=== PATIENT | male | born 1985 | race Two or more races ===

== ENCOUNTER 2020-02-23 17:51 | Inpatient (IN) | payer MEDICAID, OTHER ==
[~2020-02-23] VITALS: Ht 175.3 cm; Wt 84.3 kg
[2020-02-23] MEDS ORDERED: SODIUM CHLORIDE 0.9% 1,000 ML IVB ONE (18:17)
[2020-02-23] MEDS ORDERED: LORazepam 2MG/ML-1ML VIAL IV ONE (18:30)
[2020-02-23] MEDS ORDERED: MIDAZOLAM HCL 1MG/1ML-2 ML VIAL IV ONE (19:15)
[2020-02-23 19:32] LABS: Urine Bacteria NONE SEEN /hpf (None Seen); Urine Blood Negative /uL (Negative); Urine Hyaline Cast MANY /lpf (0 - 2); Urine Mucus FEW (None Seen); Urine Specific Gravity 1.027 (1.001-1.035); Urine Sperm PRESENT /hpf (None Seen); Urine WBC 5 /hpf (0 - 3)
[2020-02-23 19:33] LABS: Basophils # (auto) 0 10 ^3/uL (0-0.2); Basophils % (auto) 0.1 % (0.0-2.0); Eosinophils # (auto) 0 10 ^3/uL (0-0.8); Lymphocytes # (auto) 1.5 10 ^3/uL (0.4-5.4); Monocytes # (auto) 1.6 10 ^3/uL (0-1.3); Neutrophils # (auto) 16.2 10 ^3/uL (1.6-8.6); White Blood Cell 19.3 10^3/uL (4.4-10.8)
[2020-02-23 19:35] LABS: Hematocrit 52.2 % (41.0-53.0); Hemoglobin 17.6 g/dL (13.5-17.5); Lymphocytes % (auto) 7.7 % (10.0-50.0); Mean Corpuscular Hemoglobin 31.7 pg (28.0-32.0); Mean Corpuscular Hgb Conc. 33.8 g/dL (32.0-36.0); Mean Corpuscular Volume 93.8 fL (80.0-100.0); Monocytes % (auto) 8.4 % (0.0-12.0); Neutrophils % (auto) 83.8 % (37.0-80.0); Nucleated Red Blood Cells % 0.7 %; Platelet Count (auto) 197 10^3/uL (140-450); Red Blood Cells 5.56 10^6/uL (4.5-5.90); Red Cell Distribution Width 12.6 % (11.8-14.3)
[2020-02-23 19:45] LABS: Albumin 4.7 g/dL (3.4-5.0); Potassium 4.8 mmol/L (3.5-5.1)
[2020-02-23 19:47] LABS: Alcohol, Urine < 3.0 mg/dL (0-10); Amphetamine Screen, Urine POSITIVE (NEGATIVE); Barbiturate Scree,Urine NEGATIVE (NEGATIVE); Benzodiazephine Screen, Urine POSITIVE (NEGATIVE); Cannabinoid Screen, Urine POSITIVE (NEGATIVE); Cocaine Screen, Urine NEGATIVE (NEGATIVE); Phencyclidine Screen, Urine NEGATIVE (NEGATIVE)
[2020-02-23 19:49] LABS: BUN/Creatinine Ratio 12.4; Bilirubin, Total 1.8 mg/dL (0.2-1.0); Salicylate < 1.7 mg/dL (2.8-20.0); Total Protein 9.5 g/dL (6.4-8.2)
[2020-02-23 19:52] LABS: Lactic Acid w/Reflex 3.6 mmol/L (0.4-2.0)
[2020-02-23 19:55] LABS: Opiate Scree,Urine NEGATIVE (NEGATIVE)
[2020-02-23 20:05] LABS: Acetaminophen < 2.0 ug/mL (10-30)
[2020-02-23] MEDS ORDERED: TEMAZEPAM 15 MG CAP PO PRN (21:00)
[2020-02-23] MEDS ORDERED: ONDANSETRON HCL 4 MG/2 ML VIAL IV PRN (21:00)
[2020-02-23] MEDS ORDERED: cefTRIAXone 1GM/50ML D5W 50 ML IV ONE (21:00)
[2020-02-23] MEDS ORDERED: SODIUM CHLORIDE 0.9% 1,000 ML IV SCH (21:00)
[2020-02-23] MEDS ORDERED: SODIUM CHLORIDE 0.9% 1,000 ML IV ONE ×2 (21:00→21:15)
[2020-02-23] MEDS ORDERED: NITROGLYCERIN 0.4 MG SL TAB SL PRN (21:30)
[2020-02-23] MEDS ORDERED: MORPHINE SULF INJ 2 MG/ML SYRINGE 1ML IV PRN (21:30)
[2020-02-23] MEDS ORDERED: FAMOTIDINE 20 MG TAB PO SCH (22:00)
[2020-02-23] MEDS ORDERED: SODIUM BICARBONATE 8.4 % INJ 50ML VIAL IV ONE (23:00)
[2020-02-23] MEDS ORDERED: SODIUM CHLORIDE 0.9% 500 ML IV ONE (23:00)
[2020-02-23] MEDS ORDERED: SODIUM BICARBONATE 8.4% INJ 50ML SYRINGE ONE (23:12)
[2020-02-23] MEDS: SODIUM BICARBONATE 50ML VIAL 50 ML in SOD CHL 0.45% 1,000 ML IV SCH (23:28)
[2020-02-24] MEDS ORDERED: SODIUM CHLORIDE 0.9% 500 ML IV ONE (05:00)
[2020-02-24 06:00] LABS: Basophils # (auto) 0 10 ^3/uL (0-0.2); Basophils % (auto) 0.2 % (0.0-2.0); Eosinophils # (auto) 0 10 ^3/uL (0-0.8); Eosinophils % (auto) 0.1 % (0.0-7.0); Hematocrit 38.5 % (41.0-53.0); Hemoglobin 13.3 g/dL (13.5-17.5); Lymphocytes # (auto) 2.3 10 ^3/uL (0.4-5.4); Lymphocytes % (auto) 16.5 % (10.0-50.0); Mean Corpuscular Hemoglobin 32.3 pg (28.0-32.0); Mean Corpuscular Hgb Conc. 34.6 g/dL (32.0-36.0); Mean Corpuscular Volume 93.2 fL (80.0-100.0); Monocytes # (auto) 1.9 10 ^3/uL (0-1.3); Monocytes % (auto) 13.6 % (0.0-12.0); Neutrophils # (auto) 9.8 10 ^3/uL (1.6-8.6); Neutrophils % (auto) 69.6 % (37.0-80.0); Platelet Count (auto) 138 10^3/uL (140-450); Red Blood Cells 4.13 10^6/uL (4.5-5.90); Red Cell Distribution Width 12.8 % (11.8-14.3); White Blood Cell 14.1 10^3/uL (4.4-10.8)
[2020-02-24 06:43] LABS: BUN/Creatinine Ratio 27.6; Bilirubin, Total 0.9 mg/dL (0.2-1.0); Calcium 7.7 mg/dL (8.5-10.1); Potassium 4.4 mmol/L (3.5-5.1); Total Protein 6.3 g/dL (6.4-8.2)
[2020-02-24] MEDS: SODIUM BICARBONATE 50ML VIAL 50 ML in SOD CHL 0.45% 1,000 ML IV SCH ×2 (09:07→15:48)
[2020-02-24] MEDS ORDERED: chlordiazePOXIDE HCL 25 MG CAP PO PRN (11:45)
[2020-02-24] MEDS ORDERED: PANTOPRAZOLE 40 MG/10 ML VIAL INJ IV ONE (11:45)
[2020-02-24] MEDS: FOLIC ACID 1 MG, MULTIPLE VITAMIN 10 ML, MAGNESIUM SULF SDV 50% 8 MEQ, THIAMINE INJ 100... INJ SCH ×5 (13:27)
--- NOTE | 2020-02-24 15:20 | NUR ---
Telemetry admit from ER [facility] admitted to Telemetry unit after SBAR received. Patient oriented to ev MADDEN RN, unit, room, bed, and unit policies regarding patient care and visiting hours. Patient now on continuous telemetry monitoring, tele box #4 and telemetry reading on arrival to unit is Sinus rhythm 92bpm with PVC. Patient on room air, weighed by bedscale and encouraged to call if they need something. All questions and concerns addressed, patient verbalized understanding.
[2020-02-24 16:01] VITALS: BP 143/92
[2020-02-24 17:00] VITALS: BP 143/92
--- NOTE | 2020-02-24 17:44 | NUR ---
IV removal right FA IV noted to be leaving. IV DC'd with clean sterile technique, catheter fully intact. Pressure dressing applied to site. Patient tolerated well.
--- NOTE | 2020-02-24 17:45 | NUR ---
IV insertion IV access obtained, via clean sterile technique by inserting 22 gauge catheter at RIGHT HAND after 1 attempt. IV secured properly. No trauma to site. Patient tolerated well.
[2020-02-24] MEDS: LACTULOSE 20Gm/30ML SOLN PO SCH ×2 (18:11→23:45)
--- NOTE | 2020-02-24 19:30 | NUR ---
Opening Shift Note Assumed care of patient, awake and alert. No S/S of distress/SOB or pain. Instructed on POC and to call for assist PRN, will continue to monitor for changes Q1hr and PRN.
[2020-02-24] MEDS ORDERED: cefTRIAXone 1GM/50ML D5W 50 ML IV SCH (21:00)
[2020-02-24 22:30] VITALS: BP 124/77
--- NOTE | 2020-02-25 00:09 | NUR ---
Lab called regarding positive blood culture of gram positive cocci in clusters. Hospitalist paged. Awaiting for call back.
[2020-02-25] MEDS: SODIUM BICARBONATE 50ML VIAL 50 ML in SOD CHL 0.45% 1,000 ML IV SCH (00:19)
--- NOTE | 2020-02-25 00:58 | NUR ---
Hospitalist Holland Teran NP, called back, updated with patient's status. Order received and noted. Care continued.
[2020-02-25] MEDS ORDERED: VANCOMYCIN PER PHARMACY 0 MG IV SCH (01:00)
[2020-02-25] MEDS ORDERED: VANCOMYCIN 1GM/250ML 250 ML IV ONE (02:00)
[2020-02-25 05:30] VITALS: BP 143/86
[2020-02-25 05:59] LABS: Basophils # (auto) 0 10 ^3/uL (0-0.2); Basophils % (auto) 0.4 % (0.0-2.0); Eosinophils # (auto) 0.2 10 ^3/uL (0-0.8); Eosinophils % (auto) 2.5 % (0.0-7.0); Hemoglobin 12.9 g/dL (13.5-17.5); Lymphocytes # (auto) 1.8 10 ^3/uL (0.4-5.4); Lymphocytes % (auto) 21.7 % (10.0-50.0); Mean Corpuscular Hemoglobin 32.6 pg (28.0-32.0); Mean Corpuscular Hgb Conc. 34.8 g/dL (32.0-36.0); Mean Corpuscular Volume 93.6 fL (80.0-100.0); Monocytes % (auto) 11.6 % (0.0-12.0); Neutrophils # (auto) 5.2 10 ^3/uL (1.6-8.6); Neutrophils % (auto) 63.8 % (37.0-80.0); Nucleated Red Blood Cells % 0.1 %; Platelet Count (auto) 115 10^3/uL (140-450); Red Blood Cells 3.95 10^6/uL (4.5-5.90); Red Cell Distribution Width 12.4 % (11.8-14.3); White Blood Cell 8.2 10^3/uL (4.4-10.8)
[2020-02-25] MEDS: LACTULOSE 20Gm/30ML SOLN PO SCH ×2 (06:03→12:30)
[2020-02-25 06:16] LABS: Potassium 3.6 mmol/L (3.5-5.1)
[2020-02-25 06:24] LABS: Albumin 2.8 g/dL (3.4-5.0); Bilirubin, Total 0.9 mg/dL (0.2-1.0); Calcium 7.7 mg/dL (8.5-10.1); Total Protein 6.1 g/dL (6.4-8.2)
[2020-02-25 09:00] VITALS: BP 148/85
[2020-02-25] MEDS ORDERED: PANTOPRAZOLE 40 MG/10 ML VIAL INJ IV SCH (10:00)
[2020-02-25] MEDS ORDERED: DOXY-286 PO (10:56)
[2020-02-25] MEDS ORDERED: DOXYCYCLINE 100 MG TAB/CAP PO ONE (11:00)
[2020-02-25 11:26] VITALS: BP 148/85
[2020-02-25] MEDS: FOLIC ACID 1 MG, MULTIPLE VITAMIN 10 ML, MAGNESIUM SULF SDV 50% 8 MEQ, THIAMINE INJ 100... INJ SCH ×5 (12:00)
[2020-02-25 13:00] VITALS: BP 143/92
[2020-02-25] MEDS ORDERED: VANCOMYCIN 1GM/250ML 250 ML IV SCH (13:00)
--- NOTE | 2020-02-25 15:07 | NUR ---
Patient Discharged The doctor gave the discharge order for the patient late this morning. Finalized the discharge paperwork and discussed it all with the patient. Ensured the patient understood he had a prescription, a follow up appointment with Dr. Velasquez, and reviewed his education which included Substance Abuse. Finalized orders, printed it, and had the patient sign. His mom arrived around 1430hrs. Removed telemetry box and both IVs. [facility] via [facility] chair at 1445hrs.
== END 2020-02-25 14:45 | disposition home or self-care (01) | DRG 52 ==
LOC: EDBD 17:51 → ER 17:51 → TELE 17:52 → TELE-EAST 02-24 15:33
PROVIDERS: ADMIT Nurse Practitioner; ATTEND Internal Medicine
DX: G92 Toxic encephalopathy (principal); N17.0 Acute kidney failure with tubular necrosis; M62.82 Rhabdomyolysis; R65.10 Systemic inflammatory response syndrome (SIRS) of non-infectious origin without acute organ dysfunction; F20.9 Schizophrenia, unspecified; I11.9 Hypertensive heart disease without heart failure; F17.210 Nicotine dependence, cigarettes, uncomplicated; K12.0 Recurrent oral aphthae; K59.00 Constipation, unspecified; L03.211 Cellulitis of face; R74.0 Nonspecific elevation of levels of transaminase and lactic acid dehydrogenase [LDH]; F15.10 Other stimulant abuse, uncomplicated
CPT/HCPCS: 36415; 36600; 70450; 71045; 74176; 80053; 80307; 80320; 80329; 81001; 82550; 82805; 83605; 85025; 87040; 87077; 87186; 93005; C9113; G0378; J0696; J2250

== ENCOUNTER 2020-06-30 23:03 | Inpatient (IN) | payer OTHER ==
[~2020-06-30] VITALS: Ht 167.6 cm; Wt 98.8 kg
[~2020-06-30 23:03] MED LIST: DOXY-286 PO
[2020-06-30 23:50] LABS: Basophils # (auto) 0.1 10 ^3/uL (0-0.2); Basophils % (auto) 0.4 % (0.0-2.0); Eosinophils # (auto) 0 10 ^3/uL (0-0.8); Hematocrit 44.7 % (41.0-53.0); Hemoglobin 15.4 g/dL (13.5-17.5); Lymphocytes # (auto) 1.6 10 ^3/uL (0.4-5.4); Lymphocytes % (auto) 10.1 % (10.0-50.0); Mean Corpuscular Hemoglobin 31.7 pg (28.0-32.0); Mean Corpuscular Hgb Conc. 34.6 g/dL (32.0-36.0); Mean Corpuscular Volume 91.5 fL (80.0-100.0); Monocytes # (auto) 1.7 10 ^3/uL (0-1.3); Neutrophils # (auto) 12.3 10 ^3/uL (1.6-8.6); Neutrophils % (auto) 78.5 % (37.0-80.0); Nucleated Red Blood Cells % 0.1 %; Platelet Count (auto) 226 10^3/uL (140-450); Red Blood Cells 4.88 10^6/uL (4.5-5.90); White Blood Cell 15.7 10^3/uL (4.4-10.8)
[2020-07-01 00:01] LABS: Alanine Aminotransferase 135 U/L (16-61); Albumin 4.1 g/dL (3.4-5.0); Anion Gap 14 (5-15); Aspartate Aminotransferase 233 U/L (15-37); BUN/Creatinine Ratio 16.6; Blood Alcohol < 3.0 mg/dL (0-5); Blood Urea Nitrogen 72 mg/dL (7-18); Calcium 9.9 mg/dL (8.5-10.1); Carbon Dioxide 22 mmol/L (21-32); Chloride 103 mmol/L (98-107); GFR African American 20 mL/min; GFR Non-African American 17 mL/min; Glucose 107 mg/dL (74-106); Potassium 3.4 mmol/L (3.5-5.1); Sodium 139 mmol/L (136-145)
[2020-07-01 00:06] LABS: Alkaline Phosphatase 63 U/L (45-117); Bilirubin, Total 0.9 mg/dL (0.2-1.0); Total Protein 8.9 g/dL (6.4-8.2)
[2020-07-01] MEDS ORDERED: LORazepam 2MG/ML-1ML VIAL IV ONE ×2 (00:30→01:15)
[2020-07-01] MEDS ORDERED: diphenhdrAMINE HCL 50 MG/1 ML VL IV ONE ×2 (01:00→01:15)
[2020-07-01] MEDS ORDERED: SODIUM CHLORIDE 0.9% 1,000 ML IV ONE ×2 (01:00→03:15)
[2020-07-01 01:04] LABS: Salicylate 2.1 mg/dL (2.8-20.0)
[2020-07-01 01:05] LABS: Acetaminophen < 2.0 ug/mL (10-30)
[2020-07-01] MEDS ORDERED: HALOPERIDOL LACTATE 5 MG/ML INJ VIAL IM ONE (01:15)
[2020-07-01] MEDS ORDERED: ACETAMINOPHEN 650 MG RECT SUPP PR ONE (02:45)
[2020-07-01 03:56] LABS: Amphetamine Screen, Urine POSITIVE (NEGATIVE); Barbiturate Scree,Urine NEGATIVE (NEGATIVE); Benzodiazephine Screen, Urine NEGATIVE (NEGATIVE); Cannabinoid Screen, Urine POSITIVE (NEGATIVE); Cocaine Screen, Urine NEGATIVE (NEGATIVE); Opiate Scree,Urine NEGATIVE (NEGATIVE); Phencyclidine Screen, Urine NEGATIVE (NEGATIVE)
[2020-07-01 03:57] LABS: Urine Bacteria MOD /hpf (None Seen); Urine Blood 3+ /uL (Negative); Urine Hyaline Cast MANY /lpf (0 - 2); Urine Mucus FEW (None Seen); Urine Specific Gravity 1.022 (1.001-1.035); Urine WBC 1 /hpf (0 - 3)
[2020-07-01] MEDS ORDERED: NITROGLYCERIN 0.4 MG SL TAB SL PRN ×2 (10:30→11:45)
[2020-07-01] MEDS ORDERED: MORPHINE SULF INJ 2 MG/ML SYRINGE 1ML IV PRN ×3 (10:30→11:45)
[2020-07-01] MEDS ORDERED: HCTZ25T PO (11:11)
[2020-07-01] MEDS ORDERED: AMLO5TAB15 PO (11:11)
[2020-07-01] MEDS ORDERED: THIAMINE 100mg/ml INJ (200mg/2ml VIAL) IV ONE (11:45)
[2020-07-01] MEDS ORDERED: chlordiazePOXIDE HCL 25 MG CAP PO SCH (11:45)
[2020-07-01] MEDS ORDERED: DOCUSATE SOD 100 MG CAP PO PRN (11:45)
[2020-07-01] MEDS ORDERED: ONDANSETRON HCL 4 MG/2 ML VIAL IV PRN (11:45)
[2020-07-01] MEDS ORDERED: HYDROcodone-ACET 5/325MG TAB PO PRN (11:45)
[2020-07-01] MEDS ORDERED: ACETAMINOPHEN 325 MG TAB PO PRN (11:45)
[2020-07-01] MEDS ORDERED: LACTATED RINGER'S 1,000 ML IV ONE (11:45)
[2020-07-01] MEDS ORDERED: LORazepam 0.5 MG TAB PO PRN (11:45)
[2020-07-01] MEDS ORDERED: POTASSIUM CHL 20 Meq TABLET PO ONE (11:45)
[2020-07-01] MEDS ORDERED: ALUM & MAG HYDROX-SIMETH LIQ(MAALOX) 30 ML PO PRN (11:45)
[2020-07-01] MEDS ORDERED: PANTOPRAZOLE 40 MG/10 ML VIAL INJ IV ONE (11:45)
[2020-07-01] MEDS ORDERED: cefTRIAXone 1GM/50ML D5W 50 ML IV ONE (11:45)
[2020-07-01 12:38] LABS: Cholesterol 145 mg/dL (< 200)
[2020-07-01 12:41] LABS: HDL Cholesterol 36 mg/dL (40-59); LDL Cholesterol 93 mg/dL (< 100); Triglycerides 120 mg/dL (< 150)
--- NOTE | 2020-07-01 13:59 | NUR ---
MS admit from ER [facility] admitted to tele/MS after SBAR received. Patient oriented to VANI THOMPSON RN primary RN, tele unit, room 291, bed A, and unit policies regarding patient care and visiting hours. Patient weighed by bedscale and encouraged to call if they need something. All questions and concerns addressed, patient verbalized understanding.
[2020-07-01] MEDS: SOD CHL 0.9%/ KCL 40MEQ 1,000 ML IV SCH (14:17)
[2020-07-01 14:23] VITALS: BP 146/78
[2020-07-01 14:30] VITALS: BP 146/78
[2020-07-01] MEDS ORDERED: CLINDAMYCIN 600MG IV 50 ML IV ONE (15:15)
[2020-07-01] MEDS ORDERED: ENOXAPARIN SOD 100 MG/1 ML SYRINGE SC ONE (15:15)
[2020-07-01] MEDS ORDERED: LORazepam 2MG/ML-1ML VIAL IV PRN (15:15)
[2020-07-01] MEDS ORDERED: MULTIPLE VITAMINS W/ MINERALS TAB PO ONE (15:15)
[2020-07-01] MEDS ORDERED: FOLIC ACID 1 MG TAB PO ONE (15:15)
[2020-07-01] MEDS ORDERED: METOPROLOL SUCCINATE XL 50 MG TAB PO ONE (15:15)
--- NOTE | 2020-07-01 15:17 | NUR ---
FAMILY CONTACT GIRLFRIEND CALLED, NUMBER [phone] PATIENT DID NOT WISH TO SET UP PASSWORD AT THIS TIME. LET CONTACT KNOW, MOM DAVIN REMAINS EMERGENCY CONTACT.
--- NOTE | 2020-07-01 15:28 | NUR ---
COVID WALKED TO LAB
[2020-07-01 16:54] VITALS: BP 156/89
[2020-07-01] MEDS: LORazepam 0.5 MG TAB PO SCH (18:00)
--- NOTE | 2020-07-01 18:10 | NUR ---
SCHEDULED PO ATIVAN HELD: SPOKE WITH MD HANSON REGARDING PO ATIVAN. ORDER 1MG ONE TIME, SCHEDULED AT 1800. PATIENT NOT PRESENTING ANY S/S OF WITHDRAWAL AT THIS TIME, MEDICATION HELD, MD AGREE WITH POC.
--- NOTE | 2020-07-01 18:49 | NUR ---
CARE ENDORSED TO JESSIE RAY.
--- NOTE | 2020-07-01 19:45 | NUR ---
Opening Shift Note Received report and assumed care of patient. Patient is asleep, awakens to voice and goes back to sleep. Patient is alert to self and is unaware of location and situation. No signs or symptoms of distress noted. Instructed patient on plan of care and to call for assistance as needed. Will continue to monitor.
[2020-07-01 22:00] VITALS: BP 124/63
[2020-07-01] MEDS: CLINDAMYCIN 600MG IV 50 ML IV SCH (22:35)
[2020-07-01] MEDS: ATORVASTATIN 20 MG TAB PO SCH (22:35)
--- NOTE | 2020-07-02 00:17 | NUR ---
Held Scheduled Ativan PO Patient has scheduled 0000 Ativan 1mg PO for alcohol withdrawal symptoms. Patient is not displaying signs or symptoms of alcohol withdrawals. Held Ativan and informed hospitalist. Hospitalist agreed, no new orders at this time. Will continue to monitor.
[2020-07-02] MEDS: SOD CHL 0.9%/ KCL 40MEQ 1,000 ML IV SCH ×3 (00:40→15:55)
[2020-07-02 05:00] VITALS: BP 135/77
[2020-07-02] MEDS: CLINDAMYCIN 600MG IV 50 ML IV SCH ×3 (06:02→22:08)
[2020-07-02 08:38] VITALS: BP 133/76
[2020-07-02] MEDS: LORazepam 0.5 MG TAB PO SCH ×3 (08:59→15:55)
[2020-07-02] MEDS: PANTOPRAZOLE 40 MG/10 ML VIAL INJ IV SCH (08:59)
[2020-07-02] MEDS: THIAMINE 100mg/ml INJ (200mg/2ml VIAL) IV SCH (09:00)
[2020-07-02] MEDS: cefTRIAXone 1GM/50ML D5W 50 ML IV SCH (09:00)
[2020-07-02] MEDS: MULTIPLE VITAMINS W/ MINERALS TAB PO SCH (09:01)
[2020-07-02] MEDS: METOPROLOL SUCCINATE XL 50 MG TAB PO SCH (09:01)
[2020-07-02] MEDS: ASPirin 81 mg TAB PO SCH (09:01)
[2020-07-02] MEDS: POTASSIUM CHL 20 Meq TABLET PO SCH (09:01)
[2020-07-02] MEDS: FOLIC ACID 1 MG TAB PO SCH (09:02)
[2020-07-02] MEDS ORDERED: chlordiazePOXIDE HCL 25 MG CAP PO SCH (10:00)
[2020-07-02] MEDS ORDERED: PANTOPRAZOLE 40 MG/10 ML VIAL INJ IV SCH (10:00)
[2020-07-02 11:49] VITALS: BP 129/76
--- NOTE | 2020-07-02 13:15 | NUR ---
DR. HANSON IN TO SEE PT. PT IN AGREEMENT WITH PLAN OF CARE.
--- NOTE | 2020-07-02 13:35 | NUR ---
ONTIVEROS CATHETER DC PER ORDER. CATHETER INTACT, 900ML OF YELLOW URINE IN COLLECTING BAG. PT TOLERATED PROCEDURE WELL.
[2020-07-02 16:55] VITALS: BP 135/90
--- NOTE | 2020-07-02 19:37 | NUR ---
Opening Shift Note Received report and assumed care of patient. Patient is asleep, awakens to voice. Patient is alert. No signs or symptoms of distress noted. Instructed patient on plan of care and to call for assistance as needed. Will continue to monitor.
[2020-07-02 21:35] VITALS: BP 142/69
[2020-07-02] MEDS: ATORVASTATIN 20 MG TAB PO SCH (22:08)
--- NOTE | 2020-07-03 00:22 | NUR ---
Held Scheduled Ativan PO Patient has scheduled 0000 Ativan 1mg PO for alcohol withdrawal symptoms. Patient is not displaying signs or symptoms of alcohol withdrawals. Held Ativan and informed hospitalist. Hospitalist acknowledged, no new orders received at this time. Will continue to monitor.
[2020-07-03] MEDS: SOD CHL 0.9%/ KCL 40MEQ 1,000 ML IV SCH (04:03)
[2020-07-03 05:00] VITALS: BP 131/65
[2020-07-03] MEDS: CLINDAMYCIN 600MG IV 50 ML IV SCH ×3 (06:08→22:07)
[2020-07-03 07:31] LABS: Basophils # (auto) 0 10 ^3/uL (0-0.2); Basophils % (auto) 0.4 % (0.0-2.0); Eosinophils # (auto) 0.4 10 ^3/uL (0-0.8); Eosinophils % (auto) 5.8 % (0.0-7.0); Hematocrit 34.2 % (41.0-53.0); Hemoglobin 11.8 g/dL (13.5-17.5); Lymphocytes # (auto) 2.1 10 ^3/uL (0.4-5.4); Lymphocytes % (auto) 28.2 % (10.0-50.0); Mean Corpuscular Hemoglobin 32.3 pg (28.0-32.0); Mean Corpuscular Hgb Conc. 34.4 g/dL (32.0-36.0); Mean Corpuscular Volume 93.7 fL (80.0-100.0); Monocytes # (auto) 0.6 10 ^3/uL (0-1.3); Monocytes % (auto) 8.2 % (0.0-12.0); Neutrophils # (auto) 4.2 10 ^3/uL (1.6-8.6); Neutrophils % (auto) 57.4 % (37.0-80.0); Platelet Count (auto) 166 10^3/uL (140-450); Red Blood Cells 3.65 10^6/uL (4.5-5.90); White Blood Cell 7.3 10^3/uL (4.4-10.8)
[2020-07-03 07:42] LABS: INR 1.26 (0.9-1.15); Partial Thromboplastin Time 25.6 sec (23.0-31.2)
[2020-07-03 07:43] LABS: Potassium 4.2 mmol/L (3.5-5.1)
[2020-07-03 07:51] LABS: Albumin 2.6 g/dL (3.4-5.0); BUN/Creatinine Ratio 24.5; Bilirubin, Total 0.4 mg/dL (0.2-1.0); Magnesium 2.3 mg/dL (1.6-2.6); Phosphorus 1.6 mg/dL (2.5-4.90); Total Protein 5.6 g/dL (6.4-8.2)
[2020-07-03 08:17] VITALS: BP 143/96
[2020-07-03] MEDS: THIAMINE 100mg/ml INJ (200mg/2ml VIAL) IV SCH (08:47)
[2020-07-03] MEDS: LORazepam 0.5 MG TAB PO SCH ×3 (08:48→20:24)
[2020-07-03] MEDS: FOLIC ACID 1 MG TAB PO SCH (08:48)
[2020-07-03] MEDS: cefTRIAXone 1GM/50ML D5W 50 ML IV SCH (08:48)
[2020-07-03] MEDS: POTASSIUM CHL 20 Meq TABLET PO SCH (08:48)
[2020-07-03] MEDS: ASPirin 81 mg TAB PO SCH (08:48)
[2020-07-03] MEDS: METOPROLOL SUCCINATE XL 50 MG TAB PO SCH (08:49)
[2020-07-03] MEDS: PANTOPRAZOLE 40 MG/10 ML VIAL INJ IV SCH (08:49)
[2020-07-03] MEDS: MULTIPLE VITAMINS W/ MINERALS TAB PO SCH (08:49)
[2020-07-03] MEDS ORDERED: chlordiazePOXIDE HCL 25 MG CAP PO SCH (10:00)
[2020-07-03 12:37] VITALS: BP 143/95
--- NOTE | 2020-07-03 12:50 | NUR ---
DR. HANSON IN TO SEE PT. SPOKE TO PT's MOTHER IN REGARDS TO PLAN OF CARE.
--- NOTE | 2020-07-03 13:00 | NUR ---
PT REPORTS WANTS TO SMOKE. RISKS EXPLAINED. PT SIGNED SMOKING WAIVER.
[2020-07-03 17:05] VITALS: BP 138/97
--- NOTE | 2020-07-03 19:43 | NUR ---
Opening Shift Note Received report and assumed care of patient. Patient is asleep, awakens to voice. Patient is alert and oriented. No signs or symptoms of distress noted. Instructed patient on plan of care and to call for assistance as needed. Will continue to monitor.
[2020-07-03 22:00] VITALS: BP 134/74
[2020-07-03] MEDS: ATORVASTATIN 20 MG TAB PO SCH (22:07)
[2020-07-03] MEDS ORDERED: SODIUM PHOSPHATES 40 MEQ in D5W 5% 250 ML IV ONE (23:00)
--- NOTE | 2020-07-03 23:00 | NUR ---
IV removal/insertion 18g IV to the Left Forearm leaking. Discontinued IV with clean technique, catheter tip fully intact. Pressure dressing applied to site. NOTE: Inserted 20g IV to the Left AC. Patient tolerated well.
[2020-07-04] MEDS: SODIUM CHLORIDE 0.9% 1,000 ML IV SCH ×2 (03:15→16:20)
[2020-07-04 05:16] VITALS: BP 148/72
[2020-07-04] MEDS: CLINDAMYCIN 600MG IV 50 ML IV SCH ×2 (06:14→15:13)
[2020-07-04] MEDS ORDERED: chlordiazePOXIDE HCL 25 MG CAP PO SCH (07:00)
[2020-07-04 07:59] LABS: Basophils # (auto) 0 10 ^3/uL (0-0.2); Basophils % (auto) 0.4 % (0.0-2.0); Eosinophils # (auto) 0.4 10 ^3/uL (0-0.8); Eosinophils % (auto) 4.6 % (0.0-7.0); Hematocrit 35.8 % (41.0-53.0); Hemoglobin 12.5 g/dL (13.5-17.5); Lymphocytes # (auto) 1.9 10 ^3/uL (0.4-5.4); Lymphocytes % (auto) 21.9 % (10.0-50.0); Mean Corpuscular Hemoglobin 32.4 pg (28.0-32.0); Mean Corpuscular Volume 92.7 fL (80.0-100.0); Monocytes # (auto) 0.6 10 ^3/uL (0-1.3); Monocytes % (auto) 6.6 % (0.0-12.0); Neutrophils # (auto) 5.8 10 ^3/uL (1.6-8.6); Neutrophils % (auto) 66.5 % (37.0-80.0); Platelet Count (auto) 188 10^3/uL (140-450); Red Blood Cells 3.86 10^6/uL (4.5-5.90); Red Cell Distribution Width 12.3 % (11.8-14.3); White Blood Cell 8.8 10^3/uL (4.4-10.8)
[2020-07-04 08:00] VITALS: BP 145/95
[2020-07-04] MEDS: NEUTRA-PHOS TABLET PO SCH ×2 (08:00→15:12)
[2020-07-04 08:17] LABS: INR 1.28 (0.9-1.15); Partial Thromboplastin Time 25.9 sec (23.0-31.2)
[2020-07-04 08:20] LABS: Potassium 4.1 mmol/L (3.5-5.1)
[2020-07-04 08:31] LABS: Albumin 2.7 g/dL (3.4-5.0); BUN/Creatinine Ratio 17.4; Bilirubin, Total 0.2 mg/dL (0.2-1.0); Calcium 8.3 mg/dL (8.5-10.1); Magnesium 2.1 mg/dL (1.6-2.6); Total Protein 6.1 g/dL (6.4-8.2)
[2020-07-04] MEDS: POTASSIUM CHL 20 Meq TABLET PO SCH (10:07)
[2020-07-04] MEDS: cefTRIAXone 1GM/50ML D5W 50 ML IV SCH (10:07)
[2020-07-04] MEDS: ASPirin 81 mg TAB PO SCH (10:07)
[2020-07-04] MEDS: PANTOPRAZOLE 40 MG/10 ML VIAL INJ IV SCH (10:07)
[2020-07-04] MEDS: THIAMINE 100mg/ml INJ (200mg/2ml VIAL) IV SCH (10:07)
[2020-07-04] MEDS: MULTIPLE VITAMINS W/ MINERALS TAB PO SCH (10:08)
[2020-07-04] MEDS: FOLIC ACID 1 MG TAB PO SCH (10:08)
[2020-07-04 12:00] VITALS: BP 141/91
--- NOTE | 2020-07-04 14:29 | NUR ---
Nutrition Assessment Notes PLEASE see attached link for complete assessment Est energy needs ABW 81 [id number] kcals (20-23 kcals/kgABW) Est protein needs: 81-89 gms/day (1.0-1.1 g/kgABW) Will continue to reassess prn Addendum: 07/04/20 at [address] Amended: Links added.
[2020-07-04] MEDS: METOPROLOL SUCCINATE XL 50 MG TAB PO SCH (15:14)
--- NOTE | 2020-07-04 16:27 | NUR ---
Jose Corrales is a 34-year old male that was admitted to [facility] for Acute Metabolic Encephalopathy and drug overdose. Patient stated that he choice of drug abuse is speed and heroin. Prior to admission patient cognitive activities are intact, patient is able to do all ADL's independently. Patient stated that he is unemployed and he lives with his parents. Patient stated that his has a good support system with his parents. Prior to admission patient lives at home with parents. Patient stated that he was recently discharged from [facility] sometime last week either 06/25/2020 or 06/26/2020. Patient states that he is wants to enter another rehabilitation center for substance abuse. Patient denies that there are any problems or depression that he may trigger his substance abuse. Intervention goals: SW has provide resources for local rehabilitation centers for patient to call. Patient has resources for an evidence-based treatment center for Methamphetamine and Heroin abuse and post discharge from [facility] for sobriety that will provide CBT, Psychotherapy, Psychoeducation. Addendum: 07/04/20 at 1655 by JOSUÉ OLIVARES SS Amended: Links added.
--- NOTE | 2020-07-04 18:48 | NUR ---
Discharge instructions given as ordered. Encourage to follow up with PMD as instructed. All questions and concerns addressed. Patient verbalized understanding. IV removed with catheter intact, pressure dressing applied, hewitt catheter removed. Patient taken to vehicle via wheelchair with all personal belongings, accompanied by staff and family member. No distress noted at time of departure.
== END 2020-07-04 18:30 | disposition home or self-care (01) | DRG 812 ==
LOC: ER 23:04 → TELE 23:05 → TELE-WESTW 07-01 14:00 → WEST WING 07-03 13:47
PROVIDERS: ADMIT Hospitalist; ATTEND Internal Medicine
DX: T43.621A Poisoning by amphetamines, accidental (unintentional), initial encounter (principal); K70.30 Alcoholic cirrhosis of liver without ascites; A41.9 Sepsis, unspecified organism; G92 Toxic encephalopathy; F19.10 Other psychoactive substance abuse, uncomplicated; F10.239 Alcohol dependence with withdrawal, unspecified; E66.9 Obesity, unspecified; E78.5 Hyperlipidemia, unspecified; E87.6 Hypokalemia; F12.90 Cannabis use, unspecified, uncomplicated; F15.90 Other stimulant use, unspecified, uncomplicated; F20.9 Schizophrenia, unspecified; J44.9 Chronic obstructive pulmonary disease, unspecified; K70.10 Alcoholic hepatitis without ascites; N17.0 Acute kidney failure with tubular necrosis; N18.4 Chronic kidney disease, stage 4 (severe); N10 Acute pyelonephritis; Z20.828 Contact with and (suspected) exposure to other viral communicable diseases; Z79.899 Other long term (current) drug therapy; I12.9 Hypertensive chronic kidney disease with stage 1 through stage 4 chronic kidney disease, or unspecified chronic kidney disease; Z68.35 Body mass index [BMI] 35.0-35.9, adult; F31.9 Bipolar disorder, unspecified; E86.0 Dehydration; F17.210 Nicotine dependence, cigarettes, uncomplicated
CPT/HCPCS: 36415; 51702; 70450; 80053; 80061; 80307; 80320; 80329; 81001; 82140; 83036; 83605; 83735; 83880; 84100; 84484; 85025; 85379; 85610; 85730; 87040; 87086; 96361; 96365; 96372; 96375; C9113; G0378; J0696; J3490; J7060